=== PATIENT | male | born 1945 | race Caucasian/White ===

== ENCOUNTER 2017-05-16 09:56 | Day surgery (SDC) | payer OTHER ==
[~2017-05-16] VITALS: Ht 157.5 cm; Wt 74.1 kg
[~2017-05-16 09:56] MED LIST: DIPH25CA77 PO; LOSA50TA6 PO; MELO-216 PO
[2017-05-16] MEDS ORDERED: BABY ASPIRIN (10:45)
[2017-05-16] MEDS ORDERED: PROPOFOL 40 ML ONE (10:59)
[2017-05-16] MEDS ORDERED: LIDOCAINE 2% (SDV) 5 ML INJ ONE (10:59)
[2017-05-16 11:02] VITALS: BP 160/74; PULSE 77; RESP 29
--- NOTE | 2017-05-16 11:32 | OPPN ---
Date/Time of Note Date/Time of Note DATE: 05/16/17 TIME: 11:29 Operative Report Preoperative Diagnosis Screening Postoperative Diagnosis Sigmoid polyp was removed using snare and electrocautery Transverse colon polyp was removed using biopsy forceps Mild diverticulosis of the colon Internal hemorrhoids Operation/Procedure Performed Colonoscopy biopsy and polypectomy Surgeon see signature line podiatrist assistant None Anesthesia: MAC Estimated blood loss: none Transfusion Required none Specimen Colon polyps Grafts/Implants none Complications none SHASTA BRADLEY MD May 16, 2017 11:32
[2017-05-16 12:00] VITALS: BP 122/68; PULSE 57; RESP 19
--- NOTE | 2017-05-16 12:28 | GILP ---
DATE OF PROCEDURE: 05/16/2017 NAME OF PROCEDURE: Colonoscopy, biopsy and polypectomy. SURGEON: Jean-Claude Mercado MD. PREOPERATIVE DIAGNOSIS: Screening colonoscopy. POSTOPERATIVE DIAGNOSES: 1. Colonoscopy all the way to the cecum. 2. Sigmoid colon polyp was removed using the snare and electrocautery. 3. Transverse colon polyp was removed using biopsy forceps. 4. Mild diverticulosis of the colon. 5. Internal hemorrhoids. INDICATIONS FOR PROCEDURE: The patient is a 72-year-old male patient who was scheduled for a screening colonoscopy. The procedure and possible complications were well explained to the patient. The patient understood and consented to the procedure. DESCRIPTION OF PROCEDURE: Under influence of anesthesia, the colonoscope was carefully introduced into the rectum. Under direct vision, it was advanced all the way to the cecum. FINDINGS: The patient had a sigmoid colon polyp and it was removed using the snare and electrocautery. He had a small transverse colon polyp and it was removed using biopsy forceps. He had mild diverticulosis of the colon and internal hemorrhoids. He tolerated the procedure very well. There was no complication from the procedure. At the end of procedure, he was awake with stable vital signs. He was discharged home in the care of his family. IMPRESSION: 1. Colonoscopy all the way to the cecum. 2. Sigmoid colon polyp was removed using the snare and electrocautery. 3. Transverse colon polyp was removed using biopsy forceps. 4. Mild diverticulosis of the colon. 5. Internal hemorrhoids. PLAN: 1. Await histopathology report. 2. Next screening colonoscopy in 5 years. Dictated By: MD RAJINDER Treviño/bill/dariusz /Document#: [id number]
--- NOTE | 2017-05-16 12:28 | GILP ---
DATE OF PROCEDURE: 05/16/2017 PROCEDURE PERFORMED: Colonoscopy, biopsy and polypectomy. SURGEON: Jean-Claude Mercado MD. PREOPERATIVE DIAGNOSIS: Screening colonoscopy. POSTOPERATIVE DIAGNOSES: 1. Colonoscopy all the way to the cecum. 2. Sigmoid colon polyp was removed using the snare and electrocautery. 3. Small transverse colon polyp was removed using biopsy forceps. 4. Diverticulosis of the colon. 5. Internal hemorrhoids. INDICATION: Mr. Jagjit Cottrell is a 72-year-old male patient who was scheduled for screening colonoscopy. The procedure and possible complications were well explained to the patient. He understood and consented to the procedure. DESCRIPTION OF PROCEDURE: Under the influence of anesthesia, the colonoscope was carefully introduced in the rectum. Under direct vision, it was advanced all the way to the cecum. Findings, the patient had a sigmoid colon polyp and it was removed using the snare and electrocautery. He had a small transverse colon polyp and it was removed using biopsy forceps. He had mild diverticulosis of the colon and internal hemorrhoids. He tolerated the procedure very well. There was no complication from the procedure. At the end of procedure, he was awake with stable vital signs. He was discharged home in care of his family. IMPRESSION: Please see postop diagnoses. PLAN: 1. Await histopathology report. 2. Screening colonoscopy in 5 years. Dictated By: MD RAJINDER Treviño/bill/madalyn /Document#: [id number]
== END 2017-05-16 15:55 | disposition home or self-care (01) ==
LOC: GIL 09:56
PROVIDERS: ATTEND Internal Medicine Gastroenterology
DX: Z12.11 Encounter for screening for malignant neoplasm of colon (principal); D12.5 Benign neoplasm of sigmoid colon; K57.90 Diverticulosis of intestine, part unspecified, without perforation or abscess without bleeding; K64.8 Other hemorrhoids; D12.3 Benign neoplasm of transverse colon; I10 Essential (primary) hypertension
CPT/HCPCS: 88305